=== PATIENT | male | born 1955 | race Caucasian/White ===

== ENCOUNTER 2022-11-09 13:32 | Emergency (ER) | payer MEDICARE ==
[2022-11-09] MEDS ORDERED: Lidocaine 1% (PF) 30 ML VIAL ONE (14:18)
[2022-11-09] MEDS ORDERED: Boostrix 0.5 ML (Tdap) VIAL (>/=7 yrs of age) ONE (14:29)
[2022-11-09] MEDS ORDERED: Bacitracin 1 PK ONE (15:46)
== END 2022-11-09 15:54 | disposition home or self-care (01) ==
LOC: MADERS 13:32
DX: S61.214A Laceration without foreign body of right ring finger without damage to nail, initial encounter (principal); I10 Essential (primary) hypertension; E78.00 Pure hypercholesterolemia, unspecified; I25.2 Old myocardial infarction; W23.0XXA Caught, crushed, jammed, or pinched between moving objects, initial encounter; Z23 Encounter for immunization; Z95.5 Presence of coronary angioplasty implant and graft; Z79.82 Long term (current) use of aspirin; Z79.899 Other long term (current) drug therapy
CPT/HCPCS: 12001; 90471; 90715; J2001